=== PATIENT | male | born 1980 | race Caucasian/White ===

== ENCOUNTER 2019-08-31 14:40 | Inpatient (IN) | payer BC ==
[~2019-08-31] VITALS: Ht 177.8 cm; Wt 88.0 kg
[2019-08-31] MEDS ORDERED: gabapentin 400mg capsule PO STA (16:15)
[2019-08-31] MEDS ORDERED: normal saline 1000ML IV soln IVB ONE (16:15)
[2019-08-31] MEDS ORDERED: LORazepam 2 mg/ml vial IV ONE (16:15)
[2019-08-31 16:49] LABS: BASOPHILS # (AUTO) 0.1 X10'3 (0-0.2); EOSINOPHILS % (AUTO) 0.1 % (0-6); HEMOGLOBIN 16.8 g/dl (14.0-17.9); MONOCYTES # (AUTO) 0.4 X10'3 (0-0.9); NEUTROPHILS # (AUTO) 3.5 X10'3 (1.8-7.7); RED CELL DISTRIBUTION WIDTH 13.7 % (11.5-14.5)
[2019-08-31 16:51] LABS: BASOPHILS % (AUTO) 1.2 % (0-1); HEMATOCRIT 48.6 % (42.0-52.0); LYMPHOCYTES % (AUTO) 20.2 % (21-51); MEAN CORPUSCULAR HEMOGLOBIN 32.7 PG (27.0-31.0); MEAN CORPUSCULAR HGB CONC 34.6 g/dL (33.0-36.5); MEAN CORPUSCULAR VOLUME 94.5 FL (78-98); MEAN PLATELET VOLUME 7.9 FL (7.4-10.4); MONOCYTES % (AUTO) 7.8 % (2-12); NEUTROPHILS % (AUTO) 70.7 % (42-75); PLATELET COUNT 232 X10'3 (140-440); RED BLOOD COUNT 5.15 X10'6 (4.70-6.10); WHITE BLOOD COUNT 4.9 X10'3 (4.5-11.0)
[2019-08-31 16:59] LABS: ALANINE AMINOTRANSFERASE 120 U/L (12-78); ALBUMIN 4.4 G/DL (3.4-5.0); ALKALINE PHOSPHATASE 69 IU/L (46-116); ANION GAP 22 (8-16); ASPARTATE AMINO TRANSFERASE 98 U/L (10-37); BILIRUBIN,TOTAL 0.8 MG/DL (0.1-1.0); BLOOD UREA NITROGEN 15 MG/DL (7-18); BUN/CREATININE RATIO 10.9 (5.4-32.0); CHLORIDE 96 MMOL/L (99-107); CREATININE 1.37 MG/DL (0.60-1.10); GLUCOSE 185 MG/DL (70-104); POTASSIUM 3.7 MMOL/L (3.5-5.1); SODIUM 134 MMOL/L (135-145); TOTAL CARBON DIOXIDE 15.6 MMOL/L (24-32); TOTAL PROTEIN 8.8 G/DL (6.4-8.2); eGFR 58 ML/MIN
[2019-08-31 17:15] LABS: ETHANOL 0.352 GM/DL (0.0-0.010)
[2019-08-31] MEDS ORDERED: phenobarbital sod 130mg/ml inj. IV ONE (17:25)
[2019-08-31] MEDS ORDERED: NO HOME MEDS (17:46)
[2019-08-31] MEDS ORDERED: magnesium 4gm in 100ml NS 100 ML IV PRN (18:00)
[2019-08-31] MEDS ORDERED: magnesium 2GM in 50ml NS 50 ML IV PRN (18:00)
[2019-08-31] MEDS ORDERED: magnesium Cl slow-release 64mg tablet PO PRN (18:00)
[2019-08-31] MEDS ORDERED: haloperidol 5mg tablet PO PRN (18:00)
[2019-08-31] MEDS ORDERED: nicotine 21mg patch - 24 hr TD ONE (18:00)
[2019-08-31] MEDS ORDERED: dextrose 50%-water 50ml dispensing syringe IV PRN (18:00)
[2019-08-31] MEDS ORDERED: potassium CL 10mEq/100ml bag 100 ML IV PRN ×2 (18:00)
[2019-08-31] MEDS ORDERED: haloperidol lactate 5mg/ml inj IM PRN (18:00)
[2019-08-31] MEDS ORDERED: potassium Cl 20 mEq SR tablet PO PRN (18:00)
[2019-08-31] MEDS ORDERED: thiamine 100mg/ml 2ml inj. IV ONE (18:00)
[2019-08-31] MEDS: LORazepam 2 mg/ml vial IV PRN ×2 (18:52→21:27)
--- NOTE | 2019-08-31 19:06 | NUR ---
pt awaitinig ipa. he is fixated on going outside to smoke a cigarette. he reports he is smoking or vaping (with nicotine) "24 hrs a day". I explained our policy and that he is unable to leave the hospital for any reason, unless choosing to go AMA. Nicotine patch ini place and he reports it is not working. Place on tele (per orders) and seizure pads on bedrails. Pt remains sweaty and w/HR 107 (ST). Dinner tray ordered. Given ativan 2 mg iv and thiamine iv.
--- NOTE | 2019-08-31 19:14 | NUR ---
PT CALLED RN INTO ROOM TO HELP UNCONNECT HIM TO GO TO BATHROOM. PT STOOD UP IN ROOM AND STUMBLED AROUND AND ALMOST FELL. PT INSTRUCTED TO SIT BACK DOWN IN BED AND GIVEN URINAL TO URINATE. WILL UPDATE PRIMARY RN
--- NOTE | 2019-08-31 19:45 | NUR ---
PT FOUND STANDING AT THE SIDE OF HIS BED , HE HAD DROPPED THE RAIL DOWN ON HIS OWN . PT ATAXIC AND STAFF AT BEDSIDE AND ASSISTED HIM BACK TO BED. PT REPORTS HE WAS TRYING TO MAKE A PHONE CALL. PT SETTLED BACK IN THE BED. HE CONTINUES TO BE TREMOUROUS AND WTIH SOME SWEATING. PER PTS REQUEST, PTS FATHER CALLED, SANJAY [phone], AND UPDATED AND THEN PHONE CALL TRANSFERRED TO HIS ROOM. PT NOW TALKINIG WITH HIS FATHER. NEW ORDER JUST OBTAINED FOR BEDSIDE SITTER PT IS RESTLESS AND HIGH FALL RISK. DR. HERNÁNDEZ GAVE ORDER. NURS SUP UPDATED.
--- NOTE | 2019-08-31 19:58 | NUR ---
PT AGAIN ATTEMPTING TO GET OUT OF BED. INSTRUCTED NOT TO DUE TO RISK OF FALLING, PT STATED "IM GOOD AT FALLING". IN LINE OF SIGHT, WILL CONTINUE TO MONITOR
--- NOTE | 2019-08-31 20:00 | NUR ---
PT OUT OF BED. STATES HE NEEDS TO PEE BUT DOES NOT WANT URINAL. STATES HE WILL HOLD PEE IN FOR DAYS BEFORE PEEING IN URINAL. URINAL PLACED AT BEDSIDE AND INSTRUCTED TO NOT GET OUT OF BED
--- NOTE | 2019-08-31 20:33 | NUR ---
REPORT CALLED TO CAITLYN, SURGICAL, RN. FLIGHT OPERATION COORDINATOR, SURGICALCIARA ALSO UPDATED OF PTS. PT HAS BEEN SLEEPING SOUNDLY OVER THE PAST 15 MIN AND WAS LAST GIVEN ATIVAN 2 MG IV 90 MIN AGO. HR 107, OTHERWISE VSS.
[2019-08-31 20:45] VITALS: BP 153/102
--- NOTE | 2019-08-31 20:45 | NUR ---
PATIENT ADMITTED TO ROOM 340B FROM ER FOR ALCOHOL WITHDRAWAL SYNDROME. PLACE COMFORTABLE IN BED. VITAL SIGNS TAKEN AND RECORDED. PATIENT WITH A SITTER AT BEDSIDE.
[2019-08-31] MEDS: ondansetron/PF 4mg/2ml inj IV PRN (21:30)
[2019-09-01] VITALS: BP 135/92
[2019-09-01] MEDS: acetaminophen 325mg tablet PO PRN ×2 (01:16→15:02)
[2019-09-01 04:36] LABS: BASOPHILS # (AUTO) 0.1 X10'3 (0-0.2); EOSINOPHILS # (AUTO) 0.1 X10'3 (0-0.9); EOSINOPHILS % (AUTO) 0.7 % (0-6); HEMATOCRIT 42.1 % (42.0-52.0); HEMOGLOBIN 14.5 g/dl (14.0-17.9); LYMPHOCYTES # (AUTO) 1.2 X10'3 (1.1-4.8); LYMPHOCYTES % (AUTO) 16.2 % (21-51); MEAN CORPUSCULAR HEMOGLOBIN 32.7 PG (27.0-31.0); MEAN CORPUSCULAR HGB CONC 34.4 g/dL (33.0-36.5); MEAN CORPUSCULAR VOLUME 95.1 FL (78-98); MEAN PLATELET VOLUME 7.9 FL (7.4-10.4); MONOCYTES # (AUTO) 0.9 X10'3 (0-0.9); NEUTROPHILS # (AUTO) 5.1 X10'3 (1.8-7.7); NEUTROPHILS % (AUTO) 70.1 % (42-75); PLATELET COUNT 179 X10'3 (140-440); RED BLOOD COUNT 4.43 X10'6 (4.70-6.10); RED CELL DISTRIBUTION WIDTH 13.5 % (11.5-14.5); WHITE BLOOD COUNT 7.3 X10'3 (4.5-11.0)
[2019-09-01 04:44] LABS: ALBUMIN 3.7 G/DL (3.4-5.0); ANION GAP 9 (8-16); BLOOD UREA NITROGEN 12 MG/DL (7-18); CHLORIDE 100 MMOL/L (99-107); CREATININE 0.92 MG/DL (0.60-1.10); GLUCOSE 126 MG/DL (70-104); MAGNESIUM 1.8 MG/DL (1.5-2.4); POTASSIUM 3.3 MMOL/L (3.5-5.1); SODIUM 137 MMOL/L (135-145); TOTAL CARBON DIOXIDE 27.7 MMOL/L (24-32); eGFR > 90 ML/MIN
--- NOTE | 2019-09-01 06:07 | NUR ---
Problems reprioritized. Patient report given, questions answered & plan of care reviewed with ROMANA NAVAS.
--- NOTE | 2019-09-01 06:32 | NUR ---
Patient in room [facility]. I have received report from WESLY JARRELL RN and had the opportunity to ask questions and assume patient care.
[2019-09-01 07:12] VITALS: BP 139/86
[2019-09-01] MEDS: ondansetron/PF 4mg/2ml inj IV PRN (07:57)
[2019-09-01] MEDS: nicotine 21mg patch - 24 hr TD SCH (07:58)
[2019-09-01] MEDS ORDERED: thiamine inj. 100 MG, folic acid inj. 2 MG in normal saline 100ml IV soln 100 ML IV SCH (08:00)
[2019-09-01] MEDS ORDERED: MVI, adult No.4 with vit. K 10 ML in dextrose 5% water 500ml 500 ML IV SCH ×2 (08:00)
--- NOTE | 2019-09-01 08:02 | NUR ---
charted putting habitol patch on right side arm, pt wants it on left. applied to left arm
[2019-09-01] MEDS: K and/or MAG REPLACEMENT MC SCH (08:05)
[2019-09-01] MEDS: potassium Cl 20 mEq SR tablet PO PRN ×3 (10:40→19:58)
[2019-09-01 11:00] VITALS: BP 142/95
--- NOTE | 2019-09-01 17:47 | NUR ---
Problems reprioritized. Patient report given, questions answered & plan of care reviewed with DEXTER NAVAS.
--- NOTE | 2019-09-01 19:00 | NUR ---
Patient in room [facility]. I have received report from Georgia Novoa and had the opportunity to ask questions and assume patient care. Addendum: 09/01/19 at 1900 by Marychuy Calero RN Amended: Links added.
[2019-09-01 20:00] VITALS: BP 136/86
[2019-09-01] MEDS ORDERED: nicotine 21mg patch - 24 hr TD ONE (20:15)
[2019-09-01] MEDS: LORazepam 2 mg/ml vial IV PRN ×2 (20:31→23:17)
--- NOTE | 2019-09-01 20:42 | NUR ---
nicoteine patch fell off earlier in the shower. pharmacy notified pt chain smoker and very ancious. wants to smoke. medicated with ativan for the anxiety
--- NOTE | 2019-09-01 22:10 | NUR ---
resting without s&s of distress at this time.
--- NOTE | 2019-09-01 23:10 | NUR ---
c/o being ancious and medicated with 2mg iv ativan at this time.
[2019-09-02 00:07] VITALS: BP 132/96
--- NOTE | 2019-09-02 00:20 | NUR ---
resting without changes sitter at the bedside.
--- NOTE | 2019-09-02 02:20 | NUR ---
pt resting on his side without s&s of distress and sitter at the bedside.
--- NOTE | 2019-09-02 04:22 | NUR ---
pt appears comfortable on right side resting and sitter at the bedside
--- NOTE | 2019-09-02 05:11 | NUR ---
resting no change sitter at [facility] [place].
[2019-09-02 06:00] VITALS: BP 137/82
[2019-09-02 06:21] LABS: ALBUMIN 3.7 G/DL (3.4-5.0); ANION GAP 7 (8-16); BLOOD UREA NITROGEN 8 MG/DL (7-18); BUN/CREATININE RATIO 9.1 (5.4-32.0); CALCIUM 8.9 MG/DL (8.5-10.1); CHLORIDE 103 MMOL/L (99-107); CREATININE 0.88 MG/DL (0.60-1.10); GLUCOSE 93 MG/DL (70-104); MAGNESIUM 1.9 MG/DL (1.5-2.4); SODIUM 138 MMOL/L (135-145); TOTAL CARBON DIOXIDE 27.9 MMOL/L (24-32); eGFR > 90 ML/MIN
[2019-09-02 06:26] LABS: EOSINOPHILS # (AUTO) 0.2 X10'3 (0-0.9); HEMATOCRIT 40.3 % (42.0-52.0); HEMOGLOBIN 13.8 g/dl (14.0-17.9); LYMPHOCYTES # (AUTO) 1.1 X10'3 (1.1-4.8); LYMPHOCYTES % (AUTO) 24.6 % (21-51); MEAN CORPUSCULAR HEMOGLOBIN 32.9 PG (27.0-31.0); MEAN CORPUSCULAR HGB CONC 34.1 g/dL (33.0-36.5); MEAN CORPUSCULAR VOLUME 96.5 FL (78-98); MEAN PLATELET VOLUME 8.6 FL (7.4-10.4); MONOCYTES # (AUTO) 0.6 X10'3 (0-0.9); MONOCYTES % (AUTO) 13.3 % (2-12); NEUTROPHILS # (AUTO) 2.6 X10'3 (1.8-7.7); NEUTROPHILS % (AUTO) 57.1 % (42-75); PLATELET COUNT 124 X10'3 (140-440); RED BLOOD COUNT 4.18 X10'6 (4.70-6.10); RED CELL DISTRIBUTION WIDTH 13.4 % (11.5-14.5); WHITE BLOOD COUNT 4.6 X10'3 (4.5-11.0)
--- NOTE | 2019-09-02 06:37 | NUR ---
Problems reprioritized. Patient report given, questions answered & plan of care reviewed with Lara Novoa. Addendum: 09/02/19 at 0638 by Marychuy Calero RN Amended: Links added.
--- NOTE | 2019-09-02 06:38 | NUR ---
Patient in room [facility]. I have received report from Marychuy and had the opportunity to ask questions and assume patient care.
[2019-09-02] MEDS: K and/or MAG REPLACEMENT MC SCH (06:59)
[2019-09-02] MEDS: nicotine 21mg patch - 24 hr TD SCH (07:10)
[2019-09-02] MEDS: LORazepam 2 mg/ml vial IV PRN ×2 (07:10→17:17)
[2019-09-02] MEDS: ondansetron/PF 4mg/2ml inj IV PRN (07:10)
[2019-09-02] MEDS: thiamine 100mg tablet PO SCH (07:11)
[2019-09-02] MEDS: folic acid 1mg tablet PO SCH (07:11)
[2019-09-02] MEDS: multivitamins, therapeutics tablet PO SCH (07:11)
[2019-09-02 11:00] VITALS: BP 126/88
--- NOTE | 2019-09-02 11:08 | NUR ---
Malnutrition consult: Per malnutrition risk screening with RN, pt unsure if any weight loss. No documented weight history to assess for weight loss. Current BMI, overweight. Pt AOx1. Pt c/o of decreased appetite, however pt eating fairly well, PO intake 75% the last three meals, likely meeting nutrient needs. No edema. No decrease in muscle strength. Pt currently lacks a minimum of 2 criteria for malnutrition. Pt on alcohol W/D protocol, receiving MVI, folic acid and thiamine. Will continue to follow. Addendum: 09/02/19 at 1109 by Wing Dc CULVER Amended: Links added. Addendum: 09/02/19 at [address] I have reviewed and agree with note by Computer Graphics Illustrator. Jeanne Escamilla RD
[2019-09-02 18:00] VITALS: BP 125/85
[2019-09-02] MEDS ORDERED: LORazepam 2 mg/ml vial IV PRN (18:00)
--- NOTE | 2019-09-02 18:00 | NUR ---
Patient in room [facility]. I have received report from Audrey NAVAS and had the opportunity to ask questions and assume patient care. Addendum: 09/02/19 at 1829 by Mary Ramirez RN Amended: Links added.
--- NOTE | 2019-09-02 18:08 | NUR ---
Problems reprioritized. Patient report given, questions answered & plan of care reviewed with archana.
[2019-09-02] MEDS: LORazepam 1 MG tablet PO PRN (20:32)
[2019-09-03] MEDS: LORazepam 1 MG tablet PO PRN ×7 (01:41→23:57)
--- NOTE | 2019-09-03 05:00 | NUR ---
C/o anxiety x 2 this shift medicated with p.o Ativan prn as ordered effective. Addendum: 09/03/19 at 0739 by Mary Ramirez RN Amended: Links added.
[2019-09-03 05:46] LABS: BASOPHILS % (AUTO) 0.9 % (0-1); EOSINOPHILS # (AUTO) 0.3 X10'3 (0-0.9); EOSINOPHILS % (AUTO) 4.9 % (0-6); HEMATOCRIT 40.9 % (42.0-52.0); HEMOGLOBIN 14.1 g/dl (14.0-17.9); LYMPHOCYTES # (AUTO) 1.3 X10'3 (1.1-4.8); LYMPHOCYTES % (AUTO) 24.6 % (21-51); MEAN CORPUSCULAR HEMOGLOBIN 33.2 PG (27.0-31.0); MEAN CORPUSCULAR HGB CONC 34.5 g/dL (33.0-36.5); MEAN CORPUSCULAR VOLUME 96.1 FL (78-98); MEAN PLATELET VOLUME 8.6 FL (7.4-10.4); MONOCYTES # (AUTO) 0.7 X10'3 (0-0.9); MONOCYTES % (AUTO) 13.2 % (2-12); NEUTROPHILS % (AUTO) 56.4 % (42-75); PLATELET COUNT 131 X10'3 (140-440); RED BLOOD COUNT 4.25 X10'6 (4.70-6.10); RED CELL DISTRIBUTION WIDTH 13.2 % (11.5-14.5); WHITE BLOOD COUNT 5.3 X10'3 (4.5-11.0)
--- NOTE | 2019-09-03 06:00 | NUR ---
Problems reprioritized. Patient report given, questions answered & plan of care reviewed with Caterina NAVAS. Addendum: 09/03/19 at 0739 by Mary Ramirez RN Amended: Links added.
[2019-09-03 06:20] LABS: ALBUMIN 3.7 G/DL (3.4-5.0); ANION GAP 10 (8-16); BLOOD UREA NITROGEN 9 MG/DL (7-18); BUN/CREATININE RATIO 11.4 (5.4-32.0); CALCIUM 8.9 MG/DL (8.5-10.1); CHLORIDE 103 MMOL/L (99-107); CREATININE 0.79 MG/DL (0.60-1.10); GLUCOSE 90 MG/DL (70-104); MAGNESIUM 1.9 MG/DL (1.5-2.4); POTASSIUM 3.7 MMOL/L (3.5-5.1); SODIUM 138 MMOL/L (135-145); TOTAL CARBON DIOXIDE 25.3 MMOL/L (24-32); eGFR > 90 ML/MIN
[2019-09-03 07:00] VITALS: BP 130/92
[2019-09-03] MEDS: folic acid 1mg tablet PO SCH (07:13)
[2019-09-03] MEDS: multivitamins, therapeutics tablet PO SCH (07:14)
[2019-09-03] MEDS: nicotine 21mg patch - 24 hr TD SCH (07:14)
[2019-09-03] MEDS: thiamine 100mg tablet PO SCH (07:14)
[2019-09-03] MEDS: K and/or MAG REPLACEMENT MC SCH (08:00)
[2019-09-03 12:00] VITALS: BP 135/75
[2019-09-03] MEDS: acetaminophen 325mg tablet PO PRN (16:53)
--- NOTE | 2019-09-03 17:54 | NUR ---
patient medicated x3 with Ativan, with effect. Pt called Rehab this afternoon and did secure a bed, will be DC in am. Seen by Dr Barroso. Edith LOPEZ. patient encouraged to ambulate in [address]. Up ad joe in room. will continue to monitor. Report given to Demarcus NAVAS
[2019-09-03 18:30] VITALS: BP 135/91
[2019-09-03 23:00] VITALS: BP 97/54
[2019-09-04] MEDS: LORazepam 1 MG tablet PO PRN ×4 (00:51→11:49)
[2019-09-04 05:29] LABS: BASOPHILS # (AUTO) 0.1 X10'3 (0-0.2); BASOPHILS % (AUTO) 1.1 % (0-1); EOSINOPHILS # (AUTO) 0.3 X10'3 (0-0.9); EOSINOPHILS % (AUTO) 4.6 % (0-6); HEMATOCRIT 41.9 % (42.0-52.0); HEMOGLOBIN 14.4 g/dl (14.0-17.9); LYMPHOCYTES # (AUTO) 1.4 X10'3 (1.1-4.8); MEAN CORPUSCULAR HGB CONC 34.3 g/dL (33.0-36.5); MEAN CORPUSCULAR VOLUME 96.2 FL (78-98); MEAN PLATELET VOLUME 8.6 FL (7.4-10.4); MONOCYTES # (AUTO) 0.7 X10'3 (0-0.9); NEUTROPHILS # (AUTO) 3.4 X10'3 (1.8-7.7); NEUTROPHILS % (AUTO) 58.3 % (42-75); PLATELET COUNT 140 X10'3 (140-440); RED BLOOD COUNT 4.36 X10'6 (4.70-6.10); RED CELL DISTRIBUTION WIDTH 13.1 % (11.5-14.5); WHITE BLOOD COUNT 5.8 X10'3 (4.5-11.0)
[2019-09-04 05:37] LABS: ALBUMIN 3.6 G/DL (3.4-5.0); ANION GAP 9 (8-16); BLOOD UREA NITROGEN 11 MG/DL (7-18); BUN/CREATININE RATIO 13.6 (5.4-32.0); CALCIUM 8.7 MG/DL (8.5-10.1); CHLORIDE 103 MMOL/L (99-107); CREATININE 0.81 MG/DL (0.60-1.10); GLUCOSE 97 MG/DL (70-104); POTASSIUM 3.6 MMOL/L (3.5-5.1); SODIUM 136 MMOL/L (135-145); TOTAL CARBON DIOXIDE 24.2 MMOL/L (24-32); eGFR > 90 ML/MIN
--- NOTE | 2019-09-04 06:10 | NUR ---
Patient in room [facility]. I have received report from Demarcus NAVAS and had the opportunity to ask questions and assume patient care.
--- NOTE | 2019-09-04 06:26 | NUR ---
Problems reprioritized. Patient report given, questions answered & plan of care reviewed with ARMANI. Addendum: 09/04/19 at 0627 by Yonatan Brito RN Amended: Links added.
[2019-09-04] MEDS: multivitamins, therapeutics tablet PO SCH (07:20)
[2019-09-04] MEDS: thiamine 100mg tablet PO SCH (07:21)
[2019-09-04] MEDS: folic acid 1mg tablet PO SCH (07:21)
[2019-09-04] MEDS: K and/or MAG REPLACEMENT MC SCH (07:21)
[2019-09-04] MEDS: nicotine 21mg patch - 24 hr TD SCH (07:25)
[2019-09-04 07:50] VITALS: BP 110/72
[2019-09-04 11:43] VITALS: BP 124/94
--- NOTE | 2019-09-04 14:30 | NUR ---
Discharge paperwork gone over with pt and signed. Pt was given the opportunity to ask questions. W/C to front lobby. Dad to take pt to alcohol rehab.
[2019-09-04] MEDS ORDERED: LORazepam 2 mg/ml vial IV PRN (18:00)
[2019-09-04] MEDS ORDERED: LORazepam 1 MG tablet PO PRN (18:00)
== END 2019-09-04 15:10 | disposition home or self-care (01) | DRG 683 ==
LOC: ER 14:40 → ED HOLD 17:58 → SUR 3N 20:40
PROVIDERS: ADMIT Internal Medicine; ATTEND Family Medicine
DX: N17.9 Acute kidney failure, unspecified (principal); F10.239 Alcohol dependence with withdrawal, unspecified; E87.1 Hypo-osmolality and hyponatremia; D64.9 Anemia, unspecified; E87.6 Hypokalemia; F12.90 Cannabis use, unspecified, uncomplicated; F17.200 Nicotine dependence, unspecified, uncomplicated; R74.0 Nonspecific elevation of levels of transaminase and lactic acid dehydrogenase [LDH]
CPT/HCPCS: 36415; 80048; 80053; 80320; 82948; 83735; 85025; 87081; 96374; 97112; 97116; 97161; 99285; G0378; J2060; J2405; J2560; J3411; J3490; J7060